=== PATIENT | male | born 1980 | race Two or more races ===

== ENCOUNTER 2017-12-13 17:17 | Emergency (ER) | payer OTHER ==
[2017-12-14 07:28] LABS: NEGATIVE OBC STREP NEG; POSITIVE OBC STREP POS
== END 2017-12-13 18:32 | disposition home or self-care (01) ==
LOC: ER 18:32
DX: H66.002 Acute suppurative otitis media without spontaneous rupture of ear drum, left ear (principal); J02.9 Acute pharyngitis, unspecified; I10 Essential (primary) hypertension
CPT/HCPCS: 87070; 87880; 99283